=== PATIENT | male | born 1945 | race Asian ===

== ENCOUNTER → 2022-05-02 | Outpatient (CLI) | payer MEDICARE, OTHER ==
[~2022-05-02] VITALS: Ht 172.7 cm; Wt 84.0 kg
[~2022-05-02] MED LIST: ALBU8HFA IH; CHOL25TA4 PO; DICL100G51 TP; FLUT16SP NASAL; FLUT1BLS9 IH; FURO40 PO; GABA-1181 PO; GLIP10TA10 PO; LEVO175T20 PO; LIDO700A15 TP; LINA72CA PO; LORA10TA7 PO; LOSA-382 PO; METF-1211 PO; METO-558 PO; OMEG10005 PO; OMEP20 PO; POTA-92 PO; RIVA20TA PO; ROSU20TA73 PO; SERT-162 PO; SITA1TBM4 PO; TAMS-13 PO
[2022-05-02 10:09] VITALS: BP 140/89
== END | disposition home or self-care (01) ==
LOC: SRCNTR 09:46
PROVIDERS: ATTEND Internal Medicine Pulmonary Disease
DX: I11.0 Hypertensive heart disease with heart failure (principal); I50.9 Heart failure, unspecified; G47.33 Obstructive sleep apnea (adult) (pediatric); E11.9 Type 2 diabetes mellitus without complications; I48.91 Unspecified atrial fibrillation
CPT/HCPCS: G0463; Z7500

== ENCOUNTER → 2022-07-18 | Outpatient (CLI) | payer MEDICARE, OTHER ==
[~2022-07-18] VITALS: Ht 172.7 cm; Wt 81.8 kg
[~2022-07-18] MED LIST changes: +ALBU18HF12 IH; -ALBU8HFA IH
[2022-07-18 12:10] VITALS: BP 127/79
== END | disposition home or self-care (01) ==
LOC: SRCNTR 10:56
PROVIDERS: ATTEND Internal Medicine Pulmonary Disease
DX: G47.33 Obstructive sleep apnea (adult) (pediatric) (principal); I48.91 Unspecified atrial fibrillation; E11.9 Type 2 diabetes mellitus without complications; I11.0 Hypertensive heart disease with heart failure; I50.9 Heart failure, unspecified
CPT/HCPCS: G0463; Z7500

== ENCOUNTER → 2022-10-19 | Outpatient (CLI) | payer MEDICARE, OTHER ==
[~2022-10-19] VITALS: Ht 172.7 cm; Wt 75.0 kg
[~2022-10-19] MED LIST changes: -DICL100G51 TP; +DICL100G60 TP; +FLUT1BLS19 IH; -FLUT1BLS9 IH
[2022-10-19 11:50] VITALS: BP 128/79; PULSE 88; RESP 16; TEMP 97.7; O2SAT 99
== END | disposition home or self-care (01) ==
LOC: SRCNTR 11:02
PROVIDERS: ATTEND Internal Medicine Pulmonary Disease
DX: G47.33 Obstructive sleep apnea (adult) (pediatric) (principal); I48.91 Unspecified atrial fibrillation; I11.0 Hypertensive heart disease with heart failure; E11.9 Type 2 diabetes mellitus without complications; I50.20 Unspecified systolic (congestive) heart failure; Z79.899 Other long term (current) drug therapy; Z82.49 Family history of ischemic heart disease and other diseases of the circulatory system
CPT/HCPCS: G0463; Z7500